=== PATIENT | female | born 1980 | race Caucasian/White ===

== ENCOUNTER 2021-11-05 09:27 | Outpatient (CLI) | payer OTHER, SELFPAY ==
[2021-11-05 11:27] LABS: Cholesterol* 174 mg/dL (90-199); Glucose* 98 mg/dL (60-115); HDL Cholesterol* 82 mg/dL (>=50); LDL Cholesterol Calculated 73 mg/dL (<100); Triglycerides* 97 mg/dL (40-149)
== END 2021-11-05 09:28 | disposition home or self-care (01) ==
PROVIDERS: Visit Provider Obstetrics & Gynecology
DX: Z01.419 Encounter for gynecological examination (general) (routine) without abnormal findings (principal); Z13.6 Encounter for screening for cardiovascular disorders; Z13.1 Encounter for screening for diabetes mellitus
CPT/HCPCS: 80061; 82947; 84443

== ENCOUNTER 2022-11-20 11:12 | Outpatient (CLI) | payer OTHER, SELFPAY ==
--- NOTE | 2022-11-20 11:30 | CRLHL7_ITS ---
For Patients: As a result of the Century Cures Act, medical imaging exams and procedure reports are released immediately into your electronic medical record. You may view this report before your referring provider. If you have questions, please contact your health care provider. BILATERAL SCREENING MAMMOGRAM WITH COMPUTER-AIDED DETECTION AND TOMOSYNTHESIS TECHNIQUE: CC and MLO views were obtained. These mammographic images have been obtained using full-field digital technique. These mammographic images were interpreted with the benefit of computer-aided detection. Breast Tomosynthesis was used in this interpretation. COMPARISON FILM: Baseline. FINDINGS: The breasts are heterogeneously dense, which may obscure small masses IMPRESSION: There is no radiographic evidence for malignancy. ASSESSMENT: BI-RADS Category 1: Negative RECOMMENDATION: Routine screening mammogram in 1 year. A lay language report of this examination will be provided to the patient. Rickey Almazan M.D. Diagnostic Radiologist [email or web address] ARABELLA/Dictated by: Rickey Almazan MD @ 11/20/2022 1:47:00 PM (Electronically Signed)
== END 2022-11-20 11:13 | disposition home or self-care (01) ==
LOC: MAMMO 11:12
PROVIDERS: Visit Provider Obstetrics & Gynecology
DX: Z12.31 Encounter for screening mammogram for malignant neoplasm of breast (principal); R92.2 Inconclusive mammogram
CPT/HCPCS: 77063; 77067

== ENCOUNTER 2022-12-08 17:58 | Outpatient (CLI) | payer OTHER, SELFPAY | END 2022-12-08 17:59 | disposition home or self-care (01) | LOC: NFLDREF 17:58 | PROVIDERS: Visit Provider Registered Nurse | DX: Z01.419 Encounter for gynecological examination (general) (routine) without abnormal findings (principal); Z13.29 Encounter for screening for other suspected endocrine disorder | CPT/HCPCS: 84443 ==

== ENCOUNTER 2023-11-25 09:57 | Outpatient (CLI) | payer BC, SELFPAY ==
--- NOTE | 2023-11-25 10:15 | CRLHL7_ITS ---
For Patients: As a result of the Century Cures Act, medical imaging exams and procedure reports are released immediately into your electronic medical record. You may view this report before your referring provider. If you have questions, please contact your health care provider. BILATERAL SCREENING MAMMOGRAM WITH COMPUTER-AIDED DETECTION AND TOMOSYNTHESIS TECHNIQUE: CC and MLO views were obtained. These mammographic images have been obtained using full-field digital technique. These mammographic images were interpreted with the benefit of computer-aided detection. Breast Tomosynthesis was used in this interpretation. COMPARISON FILM: 11/20/22. FINDINGS: The breasts are heterogeneously dense, which may obscure small masses. IMPRESSION: There is no radiographic evidence for malignancy. ASSESSMENT: BI-RADS Category 1: Negative RECOMMENDATION: Routine screening mammogram in 1 year. A lay language report of this examination will be provided to the patient. Rickey Almazan M.D. Diagnostic Radiologist [email or web address] SP/Dictated by: Rickey Almazan MD @ 11/25/2023 12:42:00 PM (Electronically Signed)
== END 2023-11-25 09:58 | disposition home or self-care (01) ==
LOC: MAMMO 09:59
PROVIDERS: Visit Provider Registered Nurse
DX: Z12.31 Encounter for screening mammogram for malignant neoplasm of breast (principal); R92.2 Inconclusive mammogram
CPT/HCPCS: 77063; 77067

== ENCOUNTER 2023-12-14 17:34 | Outpatient (CLI) | payer BC, SELFPAY | END 2023-12-14 17:35 | disposition home or self-care (01) | LOC: NFLDREF 17:35 | PROVIDERS: Visit Provider Registered Nurse | DX: Z01.419 Encounter for gynecological examination (general) (routine) without abnormal findings (principal); Z13.6 Encounter for screening for cardiovascular disorders; Z13.29 Encounter for screening for other suspected endocrine disorder; Z13.1 Encounter for screening for diabetes mellitus | CPT/HCPCS: 80061; 84439; 84443 ==

== ENCOUNTER 2024-05-22 08:10 | Outpatient (CLI) | payer BC, SELFPAY | END 2024-05-22 08:11 | disposition home or self-care (01) | PROVIDERS: Visit Provider Registered Nurse | DX: E03.9 Hypothyroidism, unspecified (principal) | CPT/HCPCS: 84439; 84443 ==

== ENCOUNTER 2024-05-31 10:27 | Outpatient (CLI) | payer BC, SELFPAY ==
--- NOTE | 2024-05-31 10:45 | CRLHL7_ITS ---
For Patients: As a result of the Century Cures Act, medical imaging exams and procedure reports are released immediately into your electronic medical record. You may view this report before your referring provider. If you have questions, please contact your health care provider. DIGITAL DIAGNOSTIC BILATERAL MAMMOGRAM USING TOMOSYNTHESIS AND COMPUTER-AIDED DETECTION RIGHT BREAST ULTRASOUND CLINICAL HISTORY: RIGHT breast lump. COMPARISON: 11/25/23, 11/20/22. TECHNIQUE: Digital BILATERAL mammogram in four projections with computer-aided detection. Tomosynthesis was used in this interpretation. Real-time ultrasound imaging of RIGHT breast with imaging documentation. BREAST COMPOSITION: The breasts are extremely dense, which lowers the sensitivity of mammography. FINDINGS: 3D CC/MLO BILATERAL mammogram images submitted bilaterally. Ovoid density is present within the RIGHT breast corresponding to the area of palpable concern. No architectural distortion. No suspicious calcifications. No adenopathy. Targeted RIGHT breast ultrasound performed at 7 o`clock 3 cm from the nipple. In this location, there is a simple circumscribed anechoic cyst with increased through-transmission which measures 1.5 x 1.0 x 1.8 cm. Some artifact is present. No internal vascularity or solid component. IMPRESSION: Benign simple cyst RIGHT breast 7 o`clock 3 cm from the nipple measuring 1.5 x 1.0 x 1.8 cm. No suspicious findings. RECOMMENDATIONS: Routine screening mammography. A lay language report of this examination will be provided to the patient. BI-RADS Category 2: Benign Dictated by Rickey Almazan MD @ 05/31/2024 11:51:44 AM jj/Dictated by: Rickey Almazan MD @ 05/31/2024 11:51:00 AM (Electronically Signed)
--- NOTE | 2024-05-31 11:15 | CRLHL7_ITS ---
For Patients: As a result of the Cures Act, medical imaging exams and procedure reports are released immediately into your electronic medical record. You may view this report before your referring provider. If you have questions, please contact your health care provider. SEE DIGITAL DIAGNOSTIC BILATERAL MAMMOGRAM PERFORMED SAME DAY CRL:delta sorenson/Dictated by: Rickey Almazan MD @ 05/31/2024 11:51:00 AM (Electronically Signed)
== END 2024-05-31 10:28 | disposition home or self-care (01) ==
LOC: MAMMO 10:27
PROVIDERS: Visit Provider Family Medicine
DX: N63.13 Unspecified lump in the right breast, lower outer quadrant (principal); R92.343 Mammographic extreme density, bilateral breasts; N60.01 Solitary cyst of right breast
CPT/HCPCS: 76642; 77066; G0279

== ENCOUNTER 2024-08-22 17:32 | Outpatient (CLI) | payer BC, SELFPAY | END 2024-08-22 17:33 | disposition home or self-care (01) | LOC: NFLDUCREF 17:32 | PROVIDERS: Visit Provider Nurse Practitioner Family | DX: J02.9 Acute pharyngitis, unspecified (principal) | CPT/HCPCS: 87070 ==